=== PATIENT | female | born 1965 | race Caucasian/White ===

== ENCOUNTER 2017-07-01 00:05 | Emergency (ER) | payer SELFPAY ==
[~2017-07-01] VITALS: Ht 152.4 cm; Wt 38.0 kg
[~2017-07-01 00:05] MED LIST: CEPH500 PO; HYDR-3533 PO; SULF-154 PO
[2017-07-01 00:16] VITALS: BP 94/67; PULSE 88; RESP 16; TEMP 97.6; O2SAT 96
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
[2017-07-01 01:43] LABS: AUTOMATED NEUTROPHIL # 5.6 TH/MM3 (1.8-7.7); BASOPHIL % 0.5 % (0.0-2.0); EOSINOPHIL # 0.2 TH/MM3 (0-0.4); EOSINOPHIL % 2.2 % (0.0-4.0); HEMATOCRIT 45.7 % (35.0-46.0); LYMPH % 26.8 % (9.0-44.0); LYMPHOCYTE # 2.3 TH/MM3 (1.0-4.8); MEAN CELL VOLUME 99.7 FL (80.0-100.0); MEAN CORPUSCULAR HEMOGLOBIN 35.9 PG (27.0-34.0); MONO % 6.6 % (0.0-8.0); NEUT % 63.9 % (16.0-70.0); PLATELET COUNT 296 TH/MM3 (150-450); RED BLOOD COUNT 4.59 MIL/MM3 (4.00-5.30); RED CELL DISTRIBUTION WIDTH 13.9 % (11.6-17.2); WHITE BLOOD COUNT 8.7 TH/MM3 (4.0-11.0)
[2017-07-01 01:45] LABS: BACTERIA, URINE OCC /hpf; BLOOD, URINE NEG (NEG); GLUCOSE,URINE NEG (NEG); KETONE, URINE NEG (NEG); MUCUS URINE FEW /lpf (OCC); NITRITE,URINE POS (NEG); SQUAMOUS EPITHELIAL CELL URINE <1 /hpf (0-5); URINE COLOR LIGHT-YELLOW (YELLW/STRAW)
[2017-07-01 01:46] LABS: HEMO FLAGS AUTO DIFF
[2017-07-01 01:49] LABS: COMMENT (UR) CULT NOT INDICATED; CULTURE IF INDICATED CULT NOT INDICATED
[2017-07-01] MEDS ORDERED: BACT800T5 PO (01:51)
[2017-07-01] MEDS ORDERED: SULFAMETHOXAZOLE-TRIMETHOPRIM DS 800-160 MG TAB PO ONE (02:00)
[2017-07-01 02:15] LABS: ALT (GPT) 26 U/L (10-53); ANION GAP 11 MEQ/L (5-15); AST (GOT) 42 U/L (15-37); BICARBONATE 28.6 MEQ/L (21.0-32.0); BLOOD UREA NITROGEN 6 MG/DL (7-18); CHLORIDE 103 MEQ/L (98-107); GLOMERULAR FILTRATION RATE 140 ML/MIN (>89); POTASSIUM 3.9 MEQ/L (3.5-5.1); SODIUM (NA) 143 MEQ/L (136-145)
[2017-07-01 02:19] LABS: ALKALINE PHOSPHATASE 132 U/L (45-117); TOTAL BILIRUBIN ADULT 0.1 MG/DL (0.2-1.0)
[2017-07-01 02:33] LABS: ALCOHOL 397 MG/DL (0-5)
[2017-07-01] MEDS ORDERED: IBUPROFEN 600 MG TAB PO ONE (02:45)
[2017-07-01 03:06] LABS: SCAN/DIFF AUTO DIFF CONFIRMED
[2017-07-01 07:21] VITALS: BP 98/62; PULSE 91; RESP 16; O2SAT 92
== END 2017-07-01 10:33 | disposition home or self-care (01) ==
LOC: NEPD 00:05
DX: F10.129 Alcohol abuse with intoxication, unspecified (principal); N39.0 Urinary tract infection, site not specified; M54.2 Cervicalgia; B80 Enterobiasis; M50.322 Other cervical disc degeneration at C5-C6 level; M50.323 Other cervical disc degeneration at C6-C7 level; F41.9 Anxiety disorder, unspecified; J44.9 Chronic obstructive pulmonary disease, unspecified; Z59.0 Homelessness
CPT/HCPCS: 72050; 80053; 80307; 81001; 85025; 87077; 87086; 87186; 99284